=== PATIENT | male | born 1960 | race African-American/Black ===

== ENCOUNTER 2025-03-15 21:26 | Emergency (ER) | payer OTHER, MEDICARE ==
[~2025-03-15] VITALS: Ht 182.9 cm; Wt 127.0 kg
[2025-03-15 21:50] VITALS: TEMP 37.1
[2025-03-15] MEDS: ACETAMINOPHEN 325MG TABLET PO ONE (22:10)
[2025-03-15] MEDS: IPRATROPIUM/ALBUTEROL 0.5-3(2.5)MG/3ML NEB HHN ONE (22:16)
[2025-03-15 22:18] VITALS: PULSE 86; RESP 19; O2SAT 94
[2025-03-15 22:20] LABS: BASOPHILS % 0.5 % (0.0-2.0); EOSINOPHILS % 6.4 % (0.0-5.0); HEMATOCRIT. 44.1 % (42.0-52.0); HEMOGLOBIN. 14.7 g/dL (14.0-18.0); LYMPHOCYTES % 29.6 % (20.0-50.0); MEAN PLATELET VOLUME 10.6 fl (7.4-10.4); MONOCYTES % 14.0 % (2.0-8.0); NEUTROPHILS % 49.5 % (40.0-76.0); PLATELET 84 x1000/uL (130-400); RED BLOOD CELL COUNT 4.98 mill/uL (4.7-6.1); RED CELL DISTRIBUTION WIDTH 14.5 % (11.6-14.6)
[2025-03-15 22:31] VITALS: TEMP 98.8
[2025-03-15 22:37] LABS: CREATININE 0.8 mg/dL (0.6-1.3); UREA NITROGEN BLOOD 11 mg/dL (9-23)
[2025-03-15 22:38] LABS: INR 1.1; TROPONIN I HIGH SENSITIVITY 6 ng/L (3.0-53)
[2025-03-15 22:39] LABS: ASPARTATE AMINOTRANSFERASE 34 IU/L (<34); BILIRUBIN DIRECT 0.3 mg/dL (<=3.0); BILIRUBIN TOTAL 0.8 mg/dL (0.1-1.0); PROTEIN TOTAL 6.2 g/dL (6.0-8.3)
[2025-03-15] MEDS: PREDNISONE 20MG TABLET PO ONE (23:23)
[2025-03-15] MEDS: HYDRALAZINE 20MG/ML VIAL IV ONE (23:24)
[2025-03-15 23:28] LABS: CLARITY URINE CLEAR (CLEAR); COLOR URINE YELLOW (YELLOW); GLUCOSE URINE NEGATIVE (NEGATIVE); KETONES URINE NEGATIVE (NEGATIVE); LEUKOCYTE ESTERASE URINE NEGATIVE (NEGATIVE); NITRITE URINE NEGATIVE (NEGATIVE); OCCULT BLOOD URINE NEGATIVE (NEGATIVE); PH URINE 5.5 (4.5-8.0); PROTEIN URINE TRACE (NEGATIVE); SPECIFIC GRAVITY URINE 1.023 (1.005-1.030); UROBILINOGEN URINE 1.0 E.U./dL (0.2-1.0)
[2025-03-15] MEDS: ALBUTEROL (0.083%) 2.5MG/3ML NEB HHN ONE (23:32)
[2025-03-15 23:33] VITALS: PULSE 87; RESP 20; O2SAT 95
[2025-03-15 23:34] VITALS: BP 160/89; PULSE 92; RESP 12; O2SAT 99
[2025-03-15] MEDS ORDERED: P20 MT (23:43)
[2025-03-15] MEDS ORDERED: ALBU90AE INH (23:44)
[2025-03-15 23:52] LABS: BACTERIA URINE NONE SEEN; MUCUS URINE TRACE /lpf (NONE/TRACE); RBC URINE NONE SEEN /hpf (0-2); SQUAMOUS EPITHELIAL CELL URINE NONE SEEN /lpf (RARE/1+); WBC URINE 0-2 /hpf (0-2)
[2025-03-16 00:01] LABS: *AMPHETAMINES SCREEN URINE NEGATIVE (NEGATIVE); *BARBITURATES SCREEN URINE NEGATIVE (NEGATIVE); *BENZODIAZEPINES SCREEN URINE NEGATIVE (NEGATIVE); *COCAINE SCREEN URINE NEGATIVE (NEGATIVE); CANNABINOID URINE SCREEN NEGATIVE (NEGATIVE); ECSTASY MDMA SCREEN URINE NEGATIVE (NEGATIVE); METHADONE URINE SCREEN NEGATIVE (NEGATIVE); OPIATES URINE SCREEN NEGATIVE (NEGATIVE); PHENCYCLIDINE URINE SCREEN NEGATIVE (NEGATIVE)
[2025-03-16 06:51] LABS: INFLUENZA TYPE A Presumptive Negative (Pres. Neg.); INFLUENZA TYPE B Presumptive Negative (Pres. Neg.)
== END 2025-03-16 | disposition home or self-care (01) ==
LOC: ER 21:26 → CMPBEDREQ 03-16 08:05
DX: I48.91 Unspecified atrial fibrillation (principal); J44.1 Chronic obstructive pulmonary disease with (acute) exacerbation; I10 Essential (primary) hypertension; Z72.0 Tobacco use; Z20.822 Contact with and (suspected) exposure to COVID-19; Z79.899 Other long term (current) drug therapy
CPT/HCPCS: 80076; 80305; 80048; 81003; 80320; 83880; 85025; 85610; 85730; 84484; 87804 ×2; 36415; 71045; 94640; 93005; 96374; 99285; 87426; J7512; J0360; Z7610 ×4; 94070; 94664; G0480